=== PATIENT | female | born 1985 | race Caucasian/White ===

== ENCOUNTER 2023-12-19 14:42 | Outpatient (CLI) | payer OTHER, SELFPAY ==
[2023-12-19 15:30] VITALS: BP 122/59; PULSE 77
== END 2023-12-19 15:30 | disposition home or self-care (01) ==
LOC: ANHOBOP 15:41
PROVIDERS: Visit Provider Obstetrics & Gynecology
DX: O42.90 Premature rupture of membranes, unspecified as to length of time between rupture and onset of labor, unspecified weeks of gestation (principal); Z3A.00 Weeks of gestation of pregnancy not specified
CPT/HCPCS: 59025; 84112

== ENCOUNTER 2024-01-11 06:25 | Inpatient (IN) | payer OTHER, SELFPAY ==
[2024-01-11] VITALS (60 sets, daily range): BP systolic 90–135; BP diastolic 49–105; PULSE 56–89; RESP 16; TEMP 36.3–36.8; O2SAT 95–100; BMI 33.0
[2024-01-11] MEDS: OXYTOCIN 30 UNITS/NS 500 ML 30 UNITS/500 ML BAG IV CONT (07:10)
[2024-01-11] MEDS: LACTATED RINGERS 1,000 ML 125 ML IV CONT (07:11)
[2024-01-11 07:12] LABS: Basophils Percent Auto 0.5 % (0.2-1.2); Eosinophils Percent Auto 0.5 % (0-4.4); Hematocrit 32.6 % (37.0-47.0); Hemoglobin 10.7 g/dL (12.0-15.0); Immature Granulocyte Absolute 0.02 K/mm3 (0.00-0.031); Immature Granulocyte Percent A 0.3 % (0-0.5); Lymphocytes Absolute Auto 1.96 K/mm3 (0.9-3.2); Mean Corpuscular HGB Conc 32.8 g/dl (32-36); Mean Corpuscular Hemoglobin 29.6 pg (26-34); Mean Corpuscular Volume 90.1 fl (80-100); Mean Platelet Volume 10.3 fl (7.4-10.4); Monocytes Absolute Auto 0.4 K/mm3 (0.1-0.6); Monocytes Percent Auto 6.8 % (2.6-8.5); Neutrophils Absolute Auto 3.9 K/mm3 (1.3-6.7); Neutrophils Percent Auto 60.9 % (45.5-73.1); Platelet Count Result 242 k/mm3 (150-375); Red Blood Count 3.62 M/mm3 (4.2-5.4); White Blood Count 6.3 K/mm3 (4.5-10.0)
--- NOTE | 2024-01-11 07:23 | LDADM ---
This patient, Lelia Hernandez, was admitted to Labor/Delivery/Recovery 108 on 01/11/24 at 06:25. Plans for labor, pain management and were discussed with patient. Patient/family oriented to hospital policies and general routines including ID bracelet, bed and alarms, visiting hours, pain management, procedures, bathroom and other care routines, personal items, smoking policy, room service/diet and guest tray routines, security routines, and visiting hours. Patient/Family are encouraged to report perceived risks to care and to ask questions if they do not understand what they are told or what they should do. See OBIX for further documentation.
[2024-01-11] MEDS: OXYTOCIN 30 UNITS/NS 500 ML 30 UNITS/500 ML BAG 125 UNITS IV CONT (13:11)
--- NOTE | 2024-01-11 15:21 | PM.OBPRVD ---
OB - Vaginal Delivery Note Procedure Delivery date: 01/11/24 Events: Elective Induction of Labor Induction method: Per Pitocin Protocol Delivery augmentation: Rupture of Membranes Delivery monitor: External FHT and External Uterine Route of delivery: Episiotomy description: None Laceration Description: Perineal - 2nd Degree Delivery repair: vicryl Specimen: No Quantitative Blood Loss (ml): 100 Anesthesia type: Local Disposition: Floor Complications: No immediate complications Narrative: See H&P and notes for details on patient's admission and labor. She progressed to complete cervical dilation and at the appropriate time began pushing. With adequate expulsive efforts by the mother, the baby's head was delivered without difficulty. Nuchal cord was not present. The baby's right shoulder was anterior and delivered under the pubic symphysis without difficulty. The posterior shoulder and the rest of the baby delivered without difficulty. The umbilical cord was doubly clamped and cut after 3 minutes of delayed cord clamping. Care of the infant was then assumed by the nursing staff. Baby Date of : 01/11/24 Weeks of gestation at delivery: 40 gender: Female presentation: vertex position: Left Occiput Anterior Placenta delivery description: Expressed Cord Vessel Description: 3 Vessels
[2024-01-11] MEDS: WITCH HAZEL 40 PADS 1 PAD TOPICAL ×2 (15:26→17:19)
[2024-01-11] MEDS: BENZOCAINE 20% AER SPR (*SP) 56 GM CAN 1 SPRAY TOPICAL (15:26)
--- NOTE | 2024-01-11 16:18 | OBPPTRN ---
Patient transferred to post room #292 via wheelchair, baby at bedside. Babies father Silverio present. Oriented to unit, room, information board, rooming in, admission packet and security measures. Patient verbalizes understanding.
[2024-01-11 16:45] LABS: Rapid Plasma Reagin Non-Reactive (NonReactive)
[2024-01-11] MEDS: ACETAMINOPHEN 325 MG TABLET 650 MG PO ×2 (17:18→23:50)
[2024-01-11] MEDS: IBUPROFEN 600 MG TABLET PO ×2 (17:19→23:50)
[2024-01-11] MEDS: DOCUSATE SODIUM 100 MG CAPSULE PO (17:19)
--- NOTE | 2024-01-11 23:06 | PM.IMHP ---
H&P: HPI History of Present Illness Date/Time: 01/11/24 23:06 Chief Complaint: elective induction of labor Narrative: Carolina is a 39 year old at 40w4d who presents for elective induction of labor. Her has been complicated by advanced maternal age, and she declined aspirin prophylaxis. She reports painful contractions for days, good movement. Denies LOF or VB. Review of Systems Review of Systems: All systems reviewed & are unremarkable except as noted in HPI and below PMFSH Family History Family History Grandparent Breast cancer Social History Social History Smoking status: Never smoker Substance use: never Do You Feel Safe in your Home?: Yes Lack of Transportation: No Lack of Food: Never True Current Housing: I Have Housing Concerned About Future Housing: YES Difficulty Paying Gas/Electric Bills: No Difficulty Paying for Meds: No Currently Unemployed: No Education: Master's Degree or Higher Difficulty w/ Childcare or Family Care: No Spiritual care concerns: No Meds Home Medications and Allergies Home Medications Medication Instructions Recorded Confirmed Type ferrous sulfate 325 mg (65 mg 325 mg PO DAILY 12/10/23 12/10/23 History iron) tablet prenat.vits,rocco,rqx-iztf-ehqsm 1 tablet PO DAILY 12/10/23 01/11/24 History Allergies Allergy/AdvReac Type Severity Reaction Status Date / Time No Known Allergies Allergy Verified 12/10/23 13:38 Vital Signs Vital Signs - 24 hr 01/11/24 07:21 01/11/24 07:33 01/11/24 08:01 Temperature Pulse Rate 78 85 Respiratory Rate Blood Pressure 118/69 120/65 Pulse Oximetry Oxygen Delivery Room Air 01/11/24 08:43 01/11/24 10:11 01/11/24 10:00 Temperature 97.3 F L Pulse Rate 79 73 Respiratory Rate Blood Pressure 135/86 108/55 L Pulse Oximetry Oxygen Delivery 01/11/24 10:30 01/11/24 11:01 01/11/24 11:31 Temperature Pulse Rate 78 75 78 Respiratory Rate Blood Pressure 105/65 107/49 L 131/105 H Pulse Oximetry Oxygen Delivery 01/11/24 12:37 01/11/24 12:42 01/11/24 12:46 Temperature Pulse Rate 83 89 Respiratory Rate Blood Pressure 117/56 L 117/64 Pulse Oximetry 97 Oxygen Delivery 01/11/24 12:47 01/11/24 12:52 01/11/24 12:57 Temperature Pulse Rate Respiratory Rate Blood Pressure Pulse Oximetry 97 96 95 Oxygen Delivery 01/11/24 13:01 01/11/24 13:02 01/11/24 13:07 Temperature Pulse Rate 82 Respiratory Rate Blood Pressure 109/52 L Pulse Oximetry 95 95 Oxygen Delivery 01/11/24 13:12 01/11/24 13:15 01/11/24 13:17 Temperature Pulse Rate 81 Respiratory Rate Blood Pressure 114/65 Pulse Oximetry 95 95 Oxygen Delivery 01/11/24 13:22 01/11/24 13:27 01/11/24 13:30 Temperature Pulse Rate 71 Respiratory Rate Blood Pressure 103/61 Pulse Oximetry 95 96 Oxygen Delivery 01/11/24 13:32 01/11/24 13:37 01/11/24 13:42 Temperature Pulse Rate Respiratory Rate Blood Pressure Pulse Oximetry 96 100 100 Oxygen Delivery 01/11/24 13:45 01/11/24 13:47 01/11/24 13:52 Temperature Pulse Rate 70 Respiratory Rate Blood Pressure 111/53 L Pulse Oximetry 100 100 Oxygen Delivery 01/11/24 13:57 01/11/24 14:01 01/11/24 14:02 Temperature Pulse Rate 70 Respiratory Rate Blood Pressure 90/72 L Pulse Oximetry 100 100 Oxygen Delivery 01/11/24 14:07 01/11/24 14:09 01/11/24 14:12 Temperature Pulse Rate 70 Respiratory Rate Blood Pressure 112/56 L Pulse Oximetry 100 100 Oxygen Delivery 01/11/24 14:15 01/11/24 14:17 01/11/24 14:22 Temperature Pulse Rate 73 Respiratory Rate Blood Pressure 117/59 L Pulse Oximetry 100 100 Oxygen Delivery 01/11/24 07:30 01/11/24 12:00 01/11/24 13:00
[2024-01-12 04:00] VITALS: BP 108/58; PULSE 68; RESP 16; TEMP 36.5; O2SAT 100
[2024-01-12 04:10] LABS: Hematocrit 28.9 % (37.0-47.0); Hemoglobin 9.4 g/dL (12.0-15.0)
[2024-01-12 07:35] VITALS: BP 109/65; PULSE 82; RESP 16; TEMP 36.6; O2SAT 99
[2024-01-12] MEDS: MULTIVIT/MIN/PREN/FOL AC/IRON TABLET 1 TAB PO (09:42)
[2024-01-12] MEDS: POLYSACCHARIDE IRON COMPLEX 150 MG CAPSULE PO (09:43)
--- NOTE | 2024-01-12 10:30 | PC.NURSE ---
[id number] Mother verbalizes she is able to independently latch with appropriate positioning and alignment. She denies any nipple discomfort and is responsively . is currently meeting outcomes for weight, output, jaundice, blood sugar and feeding frequencies less than 24 hours of infants life. Mother declines any additional education at this time, however; is requesting a pump through insurance if possible. Mother is encouraged to call for assistance if her doesn?t latch, pain with latching, questions or concerns and when she request pump evaluation. Mother voiced understanding of information shared. RN LC name is written on the communication board to call for assistance with the insurance pump. Reported to the Primary RN.
--- NOTE | 2024-01-12 11:11 | PC.NURSE ---
1100 - Patient received a Zomee pump from [facility] [employer] through insurance _ [id number]
[2024-01-12 20:00] VITALS: BP 105/50; PULSE 68; RESP 20; TEMP 36.8; O2SAT 99
[2024-01-13 07:45] VITALS: BP 120/69; PULSE 64; RESP 18; TEMP 36.7; O2SAT 100
--- NOTE | 2024-01-13 10:14 | PC.NURSE ---
[id number] Consulted with mother concerning needs and she shared her ability to independently latch infant optimally without pain, however; did have more discomfort on the left breast this morning. Mother shared there may have been a couple of not so good latches through the night. Mother latched infant optimally on the left breast using cradle positioning. Educated mother of signs of a great latch with nice rounded cheek line and corner of the mouth with an angle of 130-150 not 90 degrees or less. Mother is aware of what swallowing looks like. Infant demonstrates swallowing (1:1 suck/ swallow) frequently and often after the milk releases. Mother denies pain after the milk release with only discomfort rated 3 on (0-10) pain scale. Nipple was not misshaped after infant self detached. Suggested cross cradle positioning if needed to latch deeply during the night and mother detaches if there's pain with the latch. G7-P4 Mother is feeding appropriately for growth of and understands stimulating to eat if needed. has had appropriate feedings in the last 24 hours meets the outcomes for weight, output, blood sugar and jaundice at this time. Reinforced understanding of milk production, transition of milk, signs of adequate intake, transition of stool, prevention/relief of engorgement, plugged ducts, mastitis, responsive watching for feeding cues, community resources, and when to call a provider using the resource of the feeding sheet along with the mom and baby guide. Mother voiced understanding of the information shared, is confident to continue effectively her infant at home, when to call for assistance, denies any additional assistance or education at this time. Reported to the Primary RN.
[2024-01-13] MEDS: POLYSACCHARIDE IRON COMPLEX 150 MG CAPSULE PO (10:31)
[2024-01-13] MEDS: DOCUSATE SODIUM 100 MG CAPSULE PO (10:32)
[2024-01-13] MEDS: MULTIVIT/MIN/PREN/FOL AC/IRON TABLET 1 TAB PO (10:32)
--- NOTE | 2024-01-13 19:58 | PC.NURSE ---
1200 Patient viewed the discharge video Mother & Baby Care, The First Two Weeks . Patient was given the opportunity and encouraged to ask questions. Patient verbalized understanding of information shared and has been given the mother/baby guide for home reference.
--- NOTE | 2024-01-13 21:23 | PM.OBPNVD ---
OB - PN: Subj Subjective Date/time seen: 01/13/24 08:00 Interval history: PPD#2 Doing well, pain well controlled , no issues Voiding without issue Ready for discharge home OB - PN: Obj Data Labs 01/12/24 03:42 OB - PN A/P Assessment and Plan (1) (spontaneous vaginal delivery): Code(s): O80 - Encounter for full-term uncomplicated delivery Status: Acute Plan day: 2 Plan: routine care and discharge home Time Spent With Patient Time: Total time spent is greater than 50% in coordination of care (as documented) at patient's floor/unit and/or counseling patient: Review of Systems Review of Systems: All systems reviewed & are unremarkable except as noted in HPI and below Exam Const: General: comfortable and no acute distress Eyes: General: appearance normal, both eyes and all related structures Resp: Effort & Inspection: normal respiratory effort Cardio: Rate: regular rate Rhythm: regular rhythm Extrem: General: normal to inspection Psych: Mental Status: mental status grossly normal
--- NOTE | 2024-01-13 21:27 | PM.OBDSVD ---
DS: Admitting Diagnosis Discharge Date 01/13/24 Admitting Diagnosis elective induction of labor DS: Discharge Diagnosis Discharge Diagnosis (1) (spontaneous vaginal delivery): Code(s): O80 - Encounter for full-term uncomplicated delivery Status: Acute (2) AMA (advanced maternal age) multigravida 35+: Code(s): O09.529 - Supervision of elderly multigravida, unspecified trimester Status: Acute OB - DS: Summary OB Procedures : None OB Procedures Intrapartum: Spontaneous Vag Delivery OB Procedures: : None Peripartum Data Laceration Description: Perineal - 2nd Degree Episiotomy description: None Time Spent with Patient Time attestation: Total time spent providing and/or coordinating discharge services: Discharge Plan Discharge Attending physician on discharge: Aleksander Fontana Discharging Clinician: Aleksander Fontana Patient Disposition: Home, Self-Care Activity: may shower and pelvic rest Diet: as tolerated Discharge Instructions: Education: Mom and Baby Guide Given to: Mother Follow-Up: Call your delivering provider's office for an appointment to be seen in: 4 Weeks Mom and baby should come to the [facility] for the follow-up appointment. Appointment Date/Time: Monday, January 15, 2024 at 11:00 am What to expect at your follow-up visit: Physical Assessment Call [phone] if you are unable to keep your appointment time. BREAST CARE: * Wear a snug supportive bra. * For engorgement discomfort: Breast Feeding: * Apply warm moist washcloths * Express milk as needed to relieve engorgement * Wear loose clothing * For sore nipples: * Identify correct latch-on * Apply warm moist washcloths before and after nursing * Air dry nipples after nursing * May apply Lansinoh cream to nipples PERINEAL CARE: * Until bleeding stops, use your lucero bottle after urinating * Change your pad frequently throughout the day * You may take sitz baths several times a day (fill your bathtub with warm water and soak for 20 minutes.) Do NOT bathe in the water * No tub baths until seen by your physician - You may shower ACTIVITY: * Rest as much as possible. * Do not exercise or lift anything heavier than your baby (such as laundry or other children.) * Avoid stairs or driving as much as possible. * Do not put anything into the vagina. No douching, tampons, or sexual activity until seen by physician. NOTIFY PHYSICIAN IF YOU HAVE ANY QUESTIONS OR IF ANY OF THE FOLLOWING SYMPTOMS OCCUR: * If your episiotomy or incision becomes red, swollen, or more painful than what you have experienced in the hospital. * If your vaginal bleeding becomes foul smelling. * If your vaginal bleeding becomes more heavy than a period or if your bleeding changes from pink to bright red. However, you may pass an occasional walnut-sized clot once or twice for the first week . * If you experience a sharp, shooting pain in you calves. * If you discover a hard, reddened area on your breast or if you experience flu-like symptoms. DIET: * Eat regular, well-balanced meals. * Drink plenty of fluids daily. If , drink to thirst. Follow-up/Referrals: Aleksander Fontana MD [Physician] - 4 Weeks Discharge Medications: New docusate sodium 100 mg Capsule 100 mg PO BID PRN (Reason: Constipation) Qty: 60 0RF ibuprofen 600 mg Tablet 600 mg PO Q6H PRN (Reason: Cramping) Qty: 30 0RF Continued ferrous sulfate 325 mg (65 mg iron) Tablet 325 mg PO DAILY prenat.vits,rocco,pan-ohkx-gmyse Tablet 1 tablet PO DAILY Date of admission: 01/11/24 06:25 Primary Care Provider: UNKNOWN,DOCTOR Admitting Provider: Aleksander Fontana Attending physician on admission: Aleksander Fontana Condition: Stable
[2024-01-15 11:10] VITALS: BP 120/70; PULSE 82; RESP 16; TEMP 36.5; O2SAT 100
== END 2024-01-13 17:55 | disposition home or self-care (01) | DRG 807 ==
LOC: ANHLDR 07:51 → ANHOB2 16:13
PROVIDERS: Admitting Provider Obstetrics & Gynecology; Visit Provider Obstetrics & Gynecology
DX: O62.3 Precipitate labor (principal); Z37.0 Single live birth; O70.1 Second degree perineal laceration during delivery; Z3A.40 40 weeks gestation of pregnancy
CPT/HCPCS: 36415; 85014; 85018; 85025; 86592; 86850; 86900; 86901; A9270; J2590; J7120